=== PATIENT | female | born 1995 | race African-American/Black ===

== ENCOUNTER 2020-02-24 10:30 | Emergency (ER) | payer OTHER, SELFPAY ==
--- NOTE | ~2020-02-24 | US_ITS ---
EXAMINATION: US OB limited EXAM DATE: 02/24/2020 11:27 INDICATION: Vomiting blood. . Epigastric pain. 2nd trimester. TECHNIQUE: Pelvic obstetrical transabdominal sonogram was performed by a technologist. There are mu ltiple grayscale and Doppler images available for interpretation. There are no earlier studies of th is gestation for comparison. FINDINGS: There is a single fetus identified in vertex presentation with a heart rate of 137 beats pe r minute. The placenta is located in the anterior fundal position. There is no sonographic evidence of retroplacental hemorrhage identified. There is subjectively expected amount of amniotic fluid. IMPRESSION: 1. Single fetus in vertex presentation with heart rate 137 beats per minute. 2. Unremarkable placenta. Reviewed, dictated and finalized at location A.
[2020-02-24 10:50] VITALS: BP 125/75; PULSE 108; RESP 18; TEMP 37.5; O2SAT 100
--- NOTE | 2020-02-24 10:56 | ED.ABDPAIN ---
HPI - Abdominal Pain General Chief Complaint: Nausea/Vomiting/Diarrhea Stated Complaint: 27 wks , vomiting Time Seen by Provider: 02/24/20 10:34 Source: patient Mode of arrival: ambulatory Limitations: no limitations History of Present Illness HPI narrative: Patient is a 24-year-old female who presents to emergency department noting that she is currently at roughly [address] Rhodes. Patient has had an ultrasound 2 weeks ago in the emergency department but is unable to give details on the findings. Patient notes that she has had nausea and vomiting throughout the course of her patient had Zofran but has run out. 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 Patient notes pain across the upper abdomen. Patient notes that she has had light vaginal bleeding throughout her and HER-2 prior pregnancies. Patient is G3, P2. Patient denies any sick contacts or URI symptoms. Patient was last seen 2 weeks ago in emergency department for the same complaint of vomiting Related Data Home Medications Medication Instructions Recorded Confirmed PNV cmb#95-ferrous fumarate-FA 1 tablet PO DAILY 02/24/20 [] aspirin 81 mg PO DAILY 02/24/20 calcium carbonate-vitamin D3 1 tablet PO BID 02/24/20 [Calcium 500 + D] folic acid 0.8 mg PO DAILY 02/24/20 progesterone 5 mg IM DAILY 02/24/20 Allergies Allergy/AdvReac Type Severity Reaction Status Date / Time No Known Allergies Allergy Verified 02/24/20 11:09 Review of Systems Review of Systems: All systems reviewed & are unremarkable except as noted in HPI and below PMFSH Social History Social History (Updated 02/24/20 @ 10:59 by Jay Berkowitz PA-C) Smoking status: Former smoker Alcohol intake: former Substance use: never Gender identity (if verbalized by the patient): Female Exam Narrative: Exam Narrative: GENERAL: Well-appearing, well-nourished, and in no acute distress. HEAD: Normocephalic, atraumatic. EYES: PERRLA and EOMI. ENT: Nares clear, no rhinorrhea or epistaxis. Mucous membranes moist. Oropharynx without tonsillar hypertrophy exudate or other lesions. NECK: Supple. No adenopathy or masses. CHEST: Clear to auscultation. No respiratory distress. No wheezes rales or rhonchi HEART: Regular rate and rhythm. No murmur heard. Normal peripheral pulses. ABDOMEN: Soft, tenderness in the upper quadrants of the abdomen no rebound or guarding remainder of abdomen nontender, nondistended, normal active bowel sounds. EXTREMITIES: Normal range of motion. No edema. SKIN: Warm, dry, no rash. NEURO: No focal deficits. Alert and oriented x3. PSYCH: Normal mood and affect. Course Course Emergency Course: Patient in the room aware of ultrasound findings blood work is resting comfortably was given 2 L of fluids as tolerated p.o. intake without emesis is appearing afebrile resting comfortably in the room felt appropriate for outpatient reevaluation Vital Signs Vital signs: Vital Signs Temperature 99.5 F 02/24/20 10:50 Pulse Rate 108 H 02/24/20 10:50 Respiratory Rate 18 02/24/20 10:50 Blood Pressure 125/75 02/24/20 10:50 Pulse Oximetry 100 02/24/20 10:50 Temperature 99.5 F 02/24/20 10:50 Pulse Rate 81 02/24/20 12:45 Respiratory Rate 18 02/24/20 12:45 Blood Pressure 105/58 L 02/24/20 12:45 Pulse Oximetry 100 02/24/20 12:45 MDM - Abdominal Pain MDM Narrative Medical decision making narrative: Patient in the room at this time resting comfortably afebrile nontoxic-appearing no distress agreeing to follow-up with her fuel cell designer. Patient was hydrated no high risk changes in the blood work or imaging. Patient agreeing to follow-up with her fuel cell designer was also able to tolerate p.o. intake Lab Data Result diagrams: 02/24/20 10:58 02/24/20 10:58 Labs: Lab Results 02/24/20 02/24/20 02/24/20 Range/Units 10:58 10:58 10:58
[2020-02-24 11:01] VITALS: BP 124/65; PULSE 83; RESP 18; O2SAT 96
[2020-02-24 11:04] VITALS: BP 124/45; BP 79/52; PULSE 110; PULSE 86
--- NOTE | 2020-02-24 11:05 | PC.NURSE ---
PT UNABLE TO STAND FOR ORTHOSTATS DUE TO DIZZINESS OR SYNCOPE.
[2020-02-24] MEDS: DEXTROSE 5%/LACTATED RINGERS 1,000 ML 999 ML IV CONT ×2 (11:11→12:44)
[2020-02-24] MEDS: ONDANSETRON INJ 4 MG/2 ML VIAL IV PUSH (11:11)
[2020-02-24] MEDS: FAMOTIDINE 20 MG/2 ML VIAL IV PUSH (11:11)
--- NOTE | 2020-02-24 11:19 | PC.NURSE ---
PT TO ULTRASOUND AT THIS TIME IN [facility].
[2020-02-24 11:22] LABS: Basophils Percent Auto 0.4 % (0.2-1.2); Eosinophils Absolute Auto 0.2 K/mm3 (0-0.3); Eosinophils Percent Auto 2.1 % (0-4.4); Hematocrit 39.7 % (37.0-47.0); Hemoglobin 12.3 g/dL (12.0-15.0); Immature Granulocyte Absolute 0.04 K/mm3 (0.00-0.031); Immature Granulocyte Percent A 0.4 % (0-0.5); Lymphocytes Absolute Auto 3.45 K/mm3 (0.9-3.2); Lymphocytes Percent Auto 30.9 % (18.3-44.2); Mean Corpuscular Volume 74.3 fl (80-100); Mean Platelet Volume 10.4 fl (7.4-10.4); Monocytes Absolute Auto 0.7 K/mm3 (0.1-0.6); Monocytes Percent Auto 6.5 % (2.6-8.5); Neutrophils Absolute Auto 6.7 K/mm3 (1.3-6.7); Neutrophils Percent Auto 59.7 % (45.5-73.1); Platelet Count Result 253 k/mm3 (150-375); Red Blood Count 5.34 M/mm3 (4.2-5.4); Red Cell Distribution Width 15.5 % (11.5-14.5); White Blood Count 11.2 K/mm3 (4.5-10.0)
[2020-02-24 11:33] LABS: Bilirubin Urine Negative (Negative); Color Urine Yellow (Yellow); Glucose Urine UA Negative (Negative); Ketones Urine Negative (Negative); Leukocyte Esterase Ur Negative LEU/UL (Negative); Nitrate Urine Negative (Negative); Protein Urine Negative (Negative); Urobilinogen Urine 0.2 mg/dL (<2.0); pH Urine 7.5 (5.0-9.0)
[2020-02-24 11:34] LABS: Add Urine Microscopic? YES; Appearance Urine Cloudy (Clear); Blood Urine Trace (Negative)
[2020-02-24 11:35] LABS: Bacteria Urine Trace /hpf; RBC Urine 0-2 /hpf (0-2); Squamous Epithelial Cell Urine Occasional /hpf (Few); WBC Urine 0-3 /hpf
[2020-02-24 11:40] LABS: Alanine Aminotransferase 24 U/L (4-35); Albumin Level 3.3 g/dL (3.5-5.1); Alkaline Phosphatase 77 U/L (38-126); Anion Gap 9.6 mmol/L (7-16); Aspartate Amino Transferase 28 U/L (14-36); Bilirubin,Total < 0.1 mg/dL (0.2-1.3); Blood Urea Nitrogen 5 mg/dL (7-17); Carbon Dioxide 24 mmol/L (22-30); Chloride 105 mmol/L (98-107); Estimated CRCL calculation 171 ml/min; Estimated Glomerular Filt Rate > 60; Glucose 74 mg/dL (65-105); Lipase 93 U/L (23-300); Potassium 3.6 mmol/L (3.4-5.0); Sodium 135 mmol/L (137-145)
[2020-02-24 12:45] VITALS: BP 105/58; PULSE 81; RESP 18; O2SAT 100
[2020-02-24 13:18] VITALS: BP 110/61; PULSE 66; RESP 18; O2SAT 100
== END 2020-02-24 13:19 | disposition home or self-care (01) ==
PROVIDERS: Emergency Medicine Emergency Medical Services; Emergency Provider Emergency Medicine
DX: O21.9 Vomiting of pregnancy, unspecified (principal); Z87.891 Personal history of nicotine dependence; Z3A.00 Weeks of gestation of pregnancy not specified
CPT/HCPCS: 36415; 76815; 80053; 81001; 83690; 85025; 85461; 96361; 96374; 96375; 99284; J2405; J7121

== ENCOUNTER 2020-04-03 12:29 | Outpatient (CLI) | payer OTHER, SELFPAY ==
--- NOTE | ~2020-04-03 | US_ITS ---
EXAMINATION: US OB follow up DATE: 04/03/2020 13:30 INDICATION: Third trimester dating, routine care TECHNIQUE: Real-time ultrasound of the pelvis was performed. The interpreting radiologist was not pre sent for the study. COMPARISON: 02/24/2020 FINDINGS: There is a single living fetus in breech presentation. The placenta is anterior and abuts t he internal cervical os. cardiac activity and movement are noted. heart rate is 150 beats per minute (bpm). The amniotic fluid index is 17.3 cm which is normal. The following biometric data were obtained: Biparietal diameter (BPD): 6.3 cm; head circumference (HC): 23.9 cm; abdominal circumference (AC): 22 .5 cm; femur length (FL): 4.6 cm. These measurements are concordant. Estimated weight is 914 g +/- 137 g, which correlates with the <3rd percentile when 06/20/2020 is used as estimated date of delivery. As single measurements, these parameters are each equal to the following estimated gestational ages w ith ranges of +/- 2 standard deviations: BPD: 25 weeks 4 days +/- 2 weeks 1 days. HC: 26 weeks 0 days +/- 2 weeks 0 days. AC: 26 weeks 6 days +/- 2 weeks 1 days. FL: 25 weeks 4 days +/- 2 weeks 1 days. estimated gestational age based solely on measurements from this exam is 26 weeks 0 days +/- 1 weeks 6 days. IMPRESSION: 1. Single living fetus in breech presentation. 2. Normal amniotic fluid index. 3. Estimated weight is 914 g +/- 137 g, which correlates with the <3rd percentile when 06/20/20 20 is used as estimated date of delivery. 4. Marginal placenta previa. Reviewed, dictated and finalized at location A. IMPRESSION: 1. Single living fetus in breech presentation. 2. Normal amniotic fluid index. 3. Estimated weight is 914 g +/- 137 g, which correlates with the <3rd pe rcentile when 06/20/2020 is used as estimated date of delivery. 4. Marginal placenta previa.
== END 2020-04-03 12:30 | disposition home or self-care (01) ==
PROVIDERS: Visit Provider Obstetrics & Gynecology
DX: Z34.82 Encounter for supervision of other normal pregnancy, second trimester (principal); Z3A.26 26 weeks gestation of pregnancy
CPT/HCPCS: 76816

== ENCOUNTER 2020-05-11 14:26 | Outpatient (CLI) | payer OTHER, SELFPAY ==
--- NOTE | ~2020-05-11 | US_ITS ---
EXAMINATION: US OB follow up DATE: 05/11/2020 15:10 INDICATION: Supervision of normal during third trimester TECHNIQUE: Real-time ultrasound of the pelvis was performed. The interpreting radiologist was not pre sent for the study. COMPARISON: None. FINDINGS: There is a single living fetus in vertex presentation. The placenta is anterior. heart rate is 154 beats per minute (bpm). The amniotic fluid index is 14.7 cm, which is normal (5th%-95%: 8.3-24. 5 cm at 33 weeks estimated gestational age). The following biometric data were obtained: BPD: 7.5 cm -> 30 weeks 1 days Head circumference: 27.6 cm -> 30 weeks 1 days Abdominal circumference: 28.9 cm -> 32 weeks 6 days Femur length: 5.6 cm -> 29 weeks 4 days These measurements are concordant. Head circumference to abdominal circumference ratio: 0.96 (normal range 0.96-1.18). Estimated weight: 1759 g (+/-) 264 g. or 3 lbs. 14 oz. (+/-) 9 oz. IMPRESSION: 1. Single living fetus in vertex presentation with heart rate of 154 bpm. 2. Normal amniotic fluid index of 14.7 cm. 3. Estimated weight is <3rd percentile by Hadlock criteria when 06/23/2020 is used as the estim ated date of delivery (ZAIRE). Please correlate with clinical information or earlier ultrasounds for mo st accurate ZAIRE. Reviewed, dictated and finalized at location A. IMPRESSION: 1. Single living fetus in vertex presentation with heart rate of 154 bpm. 2. Normal amniotic fluid index of 14.7 cm. 3. Estimated weight is <3rd percentile by Hadlock criteria when 0 is used as the estimated date of delivery (ZAIRE). Please correlate with clinic al information or earlier ultrasounds for most accurate ZAIRE.
== END 2020-05-11 14:27 | disposition home or self-care (01) ==
PROVIDERS: Visit Provider Physician Assistant
DX: Z34.82 Encounter for supervision of other normal pregnancy, second trimester (principal); Z3A.00 Weeks of gestation of pregnancy not specified
CPT/HCPCS: 76816

== ENCOUNTER 2020-05-17 10:20 | Outpatient (RCR) | payer OTHER, SELFPAY ==
--- NOTE | ~2020-05-17 | US_ITS ---
EXAMINATION: 1. US OB BPP wo non-stress 2. US umbilical doppler multi 3. US OB /maternal detail DATE: 05/17/2020 12:49 INDICATION: Intrauterine growth restriction. Placenta previa. TECHNIQUE: Real-time ultrasound of the pelvis was performed. COMPARISON: Ultrasound 05/11/2020 FINDINGS: There is a single living fetus in breech presentation. The placenta is anterior. heart rate is 137 beats per minute (bpm). The amniotic fluid volume is subjectively normal. The following biometric data were obtained: Biparietal diameter (BPD): 7.6 cm; head circumference (HC): 27.8 cm; abdominal circumference (AC): 28 .5 cm; femur length (FL): 5.8 cm. These measurements are concordant. Estimated weight is 1787 g +/- 268 g, which correlates with <3rd percentile when 06/20/20 is us ed as estimated date of delivery. As single measurements, these parameters are each equal to the following estimated gestational ages: BPD: 30 weeks 2 days. HC: 30 weeks 3 days. AC: 32 weeks 4 days. FL: 30 weeks 4 days. estimated gestational age based solely on measurements from this exam is 31 weeks 0 days +/- 2 weeks 1 days. The cerebral ventricles, cerebellum, cisterna magna, and visualized portions of the spine are normal. The heart is normal. The diaphragm, stomach, kidneys, and bladder are normal. There are two umbilica l arteries to yield a 3-vessel cord. The cord insertion is normal. Umbilical artery pulsed Doppler demonstrates a peak systolic to end-diastolic velocity ratio (S/D rat io) of 2.5 (5th percentile = 2.03, 95th percentile = 3.4). Biophysical profile performed by the technologist: breathing (30 sec sustained breathing in 30 minutes): 2 out of 2 movement (3 gross body movements in 30 minutes): 2 out of 2 tone (one episode of uopnixl-dxcttgaze-cclgkcu limb movement): 2 out of 2 Amniotic fluid pocket (2 cm): 2 out of 2 Total score: 8 out of 8 IMPRESSION: 1. Single living fetus in breech presentation. 2. Small for gestational age. Estimated weight is 1787 g +/- 268 g, which correlates with <3rd percentile when 06/20/20 is used as estimated date of delivery. 3. Normal anatomic survey. 4. Normal umbilical artery Doppler. 5. Biophysical profile 8 out of 8. Reviewed, dictated and finalized at location A. IMPRESSION: 1. Single living fetus in breech presentation. 2. Small for gestational age. Estimated weight is 1787 g +/- 268 g, which correlates with <3rd percentile when 06/20/20 is used as estimated date of del simon. 3. Normal anatomic survey. 4. Normal umbilical artery Doppler. 5. Biophysical profile 8 out of 8. IMPRESSION: 1. Single living fetus in breech presentation. 2. Small for gestational age. Estimated weight is 1787 g +/- 268 g, which correlates with <3rd percentile when 06/20/20 is used as estimated date of del simon. 3. Normal anatomic survey. 4. Normal umbilical artery Doppler. 5. Biophysical profile 8 out of 8.
--- NOTE | 2020-05-17 13:20 | PC.NURSE ---
Dr. Rhodes notified regarding reactive NST, BPP 8/8, normal dopplers, EFW, and anatomy results. Received orders from Dr. Rhodes to discharge patient to home and Dr. Rhodes's nurse to contact patient to discuss a transfer of care to [facility].
[2020-05-17 13:24] VITALS: BP 111/62; PULSE 84
== END 2020-07-03 14:27 | disposition home or self-care (01) ==
LOC: ANHOBOP 10:20
PROVIDERS: Visit Provider Obstetrics & Gynecology
DX: O36.5930 Maternal care for other known or suspected poor fetal growth, third trimester, not applicable or unspecified (principal); Z3A.35 35 weeks gestation of pregnancy
CPT/HCPCS: 59025; 76805; 76819; 76820

== ENCOUNTER 2021-12-06 17:37 | Emergency (ER) | payer OTHER, SELFPAY ==
[2021-12-06 17:40] VITALS: BP 130/82; PULSE 88; RESP 16; TEMP 37.1; O2SAT 99
--- NOTE | 2021-12-06 19:30 | ED.BACK ---
HPI - Back Pain/Injury General Chief Complaint: Back Pain/Injury Stated Complaint: back injury Time Seen by Provider: 12/06/21 19:05 Source: patient and EMS History of Present Illness HPI Narrative: Patient presents with left back pain. 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 A box fell off a top shelf she attempted to catch it and had immediate pain in her left back. Pain is sharp, constant, radiates down her leg, worse with moving her back. Denies any bowel or bladder incontinence denies any recent spinal instrumentation she denies any major changes in weight or IV drug use. She denies any midline pain. She was given Toradol by EMS and reports improvement in her symptoms Related Data Home Medications Medication Instructions Recorded Confirmed PNV cmb#95-ferrous fumarate-FA 1 tablet PO DAILY 02/24/20 05/17/20 [] calcium carbonate-vitamin D3 1 tablet PO BID 02/24/20 05/17/20 [Calcium 500 + D] Allergies Allergy/AdvReac Type Severity Reaction Status Date / Time No Known Allergies Allergy Verified 02/24/20 11:09 Review of Systems Review of Systems: CONSTITUTIONAL: Denies fever, chills, or sweats. EYES: Denies visual changes, redness, or discharge. ENT: Denies rhinorrhea, congestion, sore throat, or otalgia. CARDIOVASCULAR: Denies chest pain, palpitations, or edema. RESPIRATORY: Denies cough or dyspnea. GASTROINTESTINAL: Denies abdominal pain, nausea, vomiting, or diarrhea. GENITOURINARY: Denies dysuria or hematuria. SKIN: Denies rash or itching. MUSCULOSKELETAL: Denies joint pain, or myalgia. NEUROLOGIC: Denies headache, numbness, dizziness, or weakness. PSYCHIATRIC: Denies anxiety or depression. All systems reviewed & are unremarkable except as noted in HPI and below PMFSH Social History Social History Smoking status: Former smoker Alcohol intake: former Substance use: never Gender identity (if verbalized by the patient): Female Exam Narrative: GENERAL: Well-appearing, well-nourished, and in no acute distress. HEAD: Normocephalic, atraumatic. EYES: PERRLA and EOMI. ENT: Nares clear, no rhinorrhea or epistaxis. Mucous membranes moist. NECK: Supple. No masses. No JVD EXTREMITIES: Normal range of motion. No edema. BACK: Tenderness palpation on the left paraspinal area from L2-L5 there is no focal midline tenderness there is no step-offs or deformities. SKIN: Warm, dry, no rash. NEURO: 5 out of 5 strength in bilateral lower extremities sensation intact to light touch in the bilateral lower extremities alert and oriented x3. PSYCH: Normal mood and affect. Course Vital Signs Vital signs: Vital Signs Temperature 37.1 C 12/06/21 17:40 Pulse Rate 88 12/06/21 17:40 Respiratory Rate 16 12/06/21 17:40 Blood Pressure 130/82 12/06/21 17:40 Pulse Oximetry 99 12/06/21 17:40 Temperature 37.1 C 12/06/21 17:40 Pulse Rate 88 12/06/21 17:40 Respiratory Rate 16 12/06/21 17:40 Blood Pressure 130/82 12/06/21 17:40 Pulse Oximetry 99 12/06/21 17:40 MDM - Back Pain/Injury MDM Narrative Medical decision making narrative: H&P as above, vss, pt looks clinically well, exam without focal neurological deficits and tenderness along the left paraspinal muscles, labs/img considered, symptomatic relief available as needed, on reevaluation pt continues to looks clinically well. Suspect muscle strain, dns fracture, dislocation, cauda equina, conus medullaris, abscess. plan to tx/monitor as op w/ pcm f/u findings/plan discussed with pt, pt agree/comfortable with plan, return precautions given Discharge Plan Discharge Clinical Impression: Strain of lumbar region Qualifiers: Encounter type: initial encounter Qualified Code(s): S39.012A - Strain of muscle, fascia and tendon of lower back, initial encounter Patient Disposition: Home, Self-Care Condition: Improved Instructions: Antibioti
[2021-12-06] MEDS: ACETAMINOPHEN 500 MG TABLET 1000 MG PO (19:47)
[2021-12-06] MEDS: CYCLOBENZAPRINE HCL 10 MG TABLET PO (19:47)
== END 2021-12-06 20:03 | disposition home or self-care (01) ==
PROVIDERS: Emergency Provider Emergency Medicine
DX: S39.012A Strain of muscle, fascia and tendon of lower back, initial encounter (principal); Z87.891 Personal history of nicotine dependence; X50.9XXA Other and unspecified overexertion or strenuous movements or postures, initial encounter
CPT/HCPCS: 99283; A9270

== ENCOUNTER 2022-07-26 14:38 | Emergency (ER) | payer OTHER, SELFPAY ==
[2022-07-26 14:53] VITALS: BP 139/98; PULSE 76; RESP 20; TEMP 37.2; O2SAT 97
--- NOTE | 2022-07-26 14:55 | ED.URI ---
HPI - URI/Sore Throat General Chief Complaint: Upper Respiratory Infection Stated Complaint: fever, flu symptoms Time Seen by Provider: 07/26/22 14:48 History of Present Illness HPI Narrative: 27-year-old female presenting with URI symptoms. Patient states that for the last 2 days she has had diffuse body aches, cough, decreased appetite, intermittent fevers. Patient states that she called into work today and her boss advised her to come in for evaluation because there are several people who are flu positive at work. Patient states that her children also have similar symptoms. She has not taken anything for pain or fever. She reports diffuse chest pain with coughing. No headaches, vision changes, numbness or weakness, shortness of breath, palpitations, abdominal pain, nausea vomiting diarrhea, leg swelling. Related Data Home Medications Medication Instructions Recorded Confirmed calcium carbonate 500 mg-vitamin 1 tablet PO BID 02/24/20 05/17/20 D3 5 mcg (200 unit) tablet (Calcium 500 + D) vit no.95-ferrous 1 tablet PO DAILY 02/24/20 05/17/20 fumarate 28 mg-folic acid 800 mcg tablet () Allergies Allergy/AdvReac Type Severity Reaction Status Date / Time No Known Allergies Allergy Verified 07/26/22 14:56 Review of Systems Review of Systems: All systems reviewed & are unremarkable except as noted in HPI and below PMFSH Social History Social History Smoking status: Former smoker Alcohol intake: former Substance use: never Gender identity (if verbalized by the patient): Female Exam Narrative: GENERAL: Well-appearing, well-nourished, and in no acute distress. HEAD: Normocephalic, atraumatic. EYES: PERRLA and EOMI. ENT: Nares clear, no rhinorrhea or epistaxis. Mucous membranes moist. NECK: Supple. CHEST: Clear to auscultation. No respiratory distress. HEART: Regular rate and rhythm. No murmur heard. Normal peripheral pulses. ABDOMEN: Soft, nontender, nondistended, normal active bowel sounds. EXTREMITIES: Normal range of motion. No edema. SKIN: Warm, dry, no rash. NEURO: No focal deficits. Alert and oriented x3. PSYCH: Normal mood and affect. Course Vital Signs Vital signs: Vital Signs Temperature 98.9 F 07/26/22 14:53 Pulse Rate 76 07/26/22 14:53 Respiratory Rate 20 07/26/22 14:53 Blood Pressure 139/98 H 07/26/22 14:53 Pulse Oximetry 97 07/26/22 14:53 Oxygen Delivery Room Air 07/26/22 14:53 Temperature 98.9 F 07/26/22 14:53 Pulse Rate 76 07/26/22 14:53 Respiratory Rate 20 07/26/22 14:53 Blood Pressure 139/98 H 07/26/22 14:53 Pulse Oximetry 97 07/26/22 14:53 Oxygen Delivery Room Air 07/26/22 14:53 MDM - URI/Sore Throat MDM Narrative Medical decision making narrative: Patient is a 27-year-old female presenting with several days of URI symptoms. Patient is hypertensive, otherwise vitals are within normal limits. Patient is nontoxic and in no acute distress. Lungs are clear bilaterally. We will test her for flu, COVID, RSV. Will give Tylenol and ibuprofen. Patient is positive for COVID. Discussed appropriate supportive care and return precautions. Advised Tylenol and ibuprofen for symptomatic control. Recommended she follow-up with her PCP. Patient discharged in stable condition. Lab Data Labs: Lab Results 07/26/22 Range/Units 15:04 Influenza A (RT-PCR) Negative (Negative) Influenza B (RT-PCR) Negative (Negative) RSV (RT-PCR) Negative (Negative) SARS-CoV-2 RNA (RT-PCR) Positive A Critical Care Time Critical Care Time Critical Care Time: No Discharge Plan Discharge Clinical Impression: COVID-19 Patient Disposition: Home, Self-Care Condition: Stable Instructions: Antibiotic Form, COVID-19 (Coronavirus Disease 2019) (ED) Additional Instructions: Please use Tylenol and ibuprofen for symptomatic relief. Please ma
[2022-07-26 17:46] LABS: Influenza A QL RT-PCR Negative (Negative); Influenza B QL RT-PCR Negative (Negative); RSV RNA, RT-PCR Negative (Negative); SARS-CoV-2 RNA PCR Positive
== END 2022-07-26 18:07 | disposition home or self-care (01) ==
PROVIDERS: Emergency Provider Emergency Medicine
DX: U07.1 COVID-19 (principal); Z87.891 Personal history of nicotine dependence
CPT/HCPCS: 87637; 99283